=== PATIENT | female | born 1960 | race Caucasian/White ===

== ENCOUNTER 2020-05-16 14:41 | Emergency (ER) | payer OTHER, MEDICARE, SELFPAY ==
[2020-05-16 14:42] VITALS: BP 120/77; PULSE 76; RESP 16; TEMP 36.2; O2SAT 97; BMI 24.8
--- NOTE | 2020-05-16 15:04 | RAD_ITS ---
STUDY: X-RAY - RIGHT FOOT CLINICAL: Female, 59 years old. slipped and fell on ice. Pain in ankle and foot. TECHNIQUE: 3 view(s) of the foot. COMPARISON: None. FINDINGS: Normal talus, calcaneus, and tarsal bones. Normal visualized subtalar, talonavicular, calcaneocuboid, tarsal and tarsometatarsal articulations. Normal metatarsi. Normal metatarsophalangeal joint of the great toe. Normal tibial and fibular sesamoid bones. Normal interphalangeal joint of the great toe. Normal phalanges of the great toe. Normal second through fifth metatarsophalangeal joints. Normal interphalangeal joints and phalanges of the lesser toes. The soft tissue structures are unremarkable. RAD/Foot min 3 Views IMPRESSION: Normal x-ray examination of the foot. Electronically Signed: Ana Carcamo MD at 16:43 EST Tel , Service support ,
--- NOTE | 2020-05-16 15:06 | ED.VISSUMM ---
- ER Visit Summary Date of Service: 05/16/20 Chief Complaint: [Injury to the right foot and ankle] History of Present Illness: The patient is a 59 F [presents to the emergency department with an injury to the right foot and ankle that occurred this morning. Patient states that she slipped on the ice and fell twisting her ankle. Patient having hard time bearing weight secondary to pain. Patient has fractured that ankle in the past years ago. Patient is from [place] and was driving through the area coming back from [place]. Patient has history of lupus. Denies any head injury. She denies neck pain.] Physical Examination: HEENT-PERRLA, EOMI. Cranial nerves II through XII grossly intact. TMs clear. Mucous membranes moist. No adenopathy. Cardiovascular-regular rate and rhythm without murmur or ectopy Lungs-clear to auscultation, chest wall stable without crepitus or subcu emphysema Abdomen-normoactive bowel sounds, soft, nontender, no rebound or rigidity, no peritoneal signs. Extremities-intact ?4, normal range of motion, normal pulses. Right leg-patient has soft tissue swelling over the lateral malleolus with tenderness to palpation. Patient has diffuse tenderness about the ankle mortise. Patient also with tenderness over the right heel diffusely. No significant ecchymosis or bruising noted. She has no pain at the proximal fibular head. No pain at the base of the fifth metatarsal. Patient is neurovascularly intact. [] Test Results: [3 view x-rays of the right foot and ankle obtained interpreted by myself showed no acute fractures or dislocations. Radiology report pending.] Emergency Department Course and Treatment: [We will be given an air splint and crutches. Patient was given 1 [place] for pain.] Treatment Plan: [To follow-up with primary care physician in 5 to 7 days. Patient will be given a prescription for few [place] for pain.] Disposition: [Discharged home in stable condition] Impression: [Right foot and ankle sprain] This note was generated with [employer] dictation software. It may contain incorrect words, spelling, and punctuation that were not noted in review of the chart prior to signing ED Disposition - Plan for ED Patient: [facility]errals: [facility] [Primary Care Provider] -
--- NOTE | 2020-05-16 15:14 | RAD_ITS ---
STUDY: X-RAY - RIGHT ANKLE REASON FOR EXAM: Female, 59 years old. SLIPPED AND FELL ON ICE, INJURY TO RIGHT FOOT TECHNIQUE: 3 view(s) of the ankle. COMPARISON: None. FINDINGS: No fracture or dislocation. Joint spaces are well-maintained. Moderate soft tissue swelling anteriorly. RAD/Ankle min 3 Views IMPRESSION: Soft tissue swelling, otherwise negative x-ray examination of the ankle. Electronically Signed: Ana Carcamo MD at 16:43 EST Tel , Service support ,
--- NOTE | 2020-05-16 16:21 | ED.DEP ---
ED Disposition - Plan for ED Patient: Instructions: ED Foot Sprain, ED Sprain Ankle W X Ray Prescriptions: Hydrocodone Bitart/Apap 5-325 [[place] 5MG-325MG] 1 tab PO Q4H PRN PRN 2 Days #10 tab PRN Reason: Pain Prescription Printed Referrals: [facility] [Primary Care Provider] - 5-7 Days
[2020-05-16] MEDS: HYDROcodone Bitartrate/Apap 5/325 Tablet PO (16:22)
--- NOTE | 2020-05-16 16:25 | NURSING ---
Adult crutches and air cast given to patient, along with pain med. She is aware to not drive until after 10:30pm and states she does not drive, anyway. Toelrated air cast application well and is aware of RICE. No fruther needs at this time. Patient given booklet for use of crutches.
== END 2020-05-16 16:47 | disposition home or self-care (01) ==
PROVIDERS: Emergency Provider Emergency Medicine
DX: S93.401A Sprain of unspecified ligament of right ankle, initial encounter (principal); S93.601A Unspecified sprain of right foot, initial encounter; W00.0XXA Fall on same level due to ice and snow, initial encounter; Y93.9 Activity, unspecified; Y92.9 Unspecified place or not applicable
CPT/HCPCS: 73610; 73630; 99283